=== PATIENT | female | born 1950 | race Caucasian/White ===

== ENCOUNTER 2017-06-07 09:03 | Day surgery (SDC) | payer OTHER ==
[2017-06-07 10:00] LABS: ADD MAN DIFF? NO
[2017-06-07 10:05] LABS: WHITE BLOOD COUNT 8.3 10^3/ul (4.8-10.8)
[2017-06-07 10:05] LABS: BASOPHIL # 0.1 10^3/ul (0.0-0.1); BASOPHILS % 0.7 % (0.0-2.0); EOSINOPHILS # 0.1 10^3/ul (0.0-0.5); EOSINOPHILS % 1.1 % (0.0-7.0); HEMATOCRIT 41.6 % (37.0-47.0); HEMOGLOBIN 13.8 g/dl (12.0-16.0); LYMPHOCYTES # 2.6 10^3/ul (0.8-2.9); LYMPHOCYTES % 31.2 % (15.0-51.0); MEAN CORPUSCULAR HEMOGLOBIN 29.6 pg (29.0-33.0); MEAN CORPUSCULAR HGB CONC 33.2 g/dl (32.0-37.0); MEAN CORPUSCULAR VOLUME 89.3 fl (82.0-101.0); MEAN PLATELET VOLUME 10.8 fl (7.4-10.4); MONOCYTE # 0.7 10^3/ul (0.3-0.9); MONOCYTES % 8.2 % (0.0-11.0); NEUTROPHIL # 4.9 10^3/ul (1.6-7.5); NEUTROPHILS % 58.6 % (39.0-77.0); PLATELET COUNT 301 10^3/UL (140-415); RED BLOOD COUNT 4.66 10^6/ul (4.20-5.40); RED CELL DISTRIBUTION WIDTH 13.5 % (11.5-14.5)
[2017-06-07 10:21] LABS: ANION GAP 16 (8-16); CARBON DIOXIDE 29 mmol/L (21-31); CHLORIDE 104 mmol/L (97-110); GLUCOSE 154 mg/dl (70-220)
[2017-06-07 10:24] LABS: INR 0.91; PROTIME 12.3 Sec (11.9-14.9)
[2017-06-07 10:25] LABS: PARTIAL THROMBOPLASTIN TIME 28.1 Sec (25.0-35.0)
[2017-06-07 10:28] LABS: SODIUM 144 mmol/L (135-144)
[2017-06-07 10:29] LABS: BLOOD UREA NITROGEN 11 mg/dl (7-20); CALCIUM 9.7 mg/dl (8.4-10.2); CREATININE 0.48 mg/dl (0.44-1.00); POTASSIUM 4.5 mmol/L (3.5-5.1)
[2017-06-07] MEDS ORDERED: LIDOCAINE 1% (MDV) 20 ML INJ (14:47)
[2017-06-07] MEDS ORDERED: IODIXANOL LOCM 100 ML BTL (14:47)
[2017-06-07] MEDS ORDERED: NITROGLYCERIN (IC) 100 MCG/ML INJ (14:47)
[2017-06-07] MEDS ORDERED: VERAPAMIL 5 MG INJ (14:47)
[2017-06-07] MEDS ORDERED: HEPARIN 1000 UNITS/ML 10 ML INJ (14:47)
[2017-06-07] MEDS ORDERED: FENTAnyl 50 MCG/ML VIAL (14:49)
[2017-06-07] MEDS ORDERED: MIDAZOLAM 1 MG/ML 2 ML INJ (14:49)
[2017-06-07] MEDS ORDERED: AL HYDROX/MG HYDROX/SIMETH 30 ML CUP PO (16:00)
[2017-06-07] MEDS ORDERED: ACETAMINOPHEN 325 MG TAB PO (16:00)
[2017-06-07] MEDS ORDERED: ONDANSETRON 4 MG INJ IV (16:00)
[2017-06-07] MEDS: SOD CHLORIDE 0.9% 1,000 ML IV (16:19)
== END 2017-06-07 19:00 | disposition home or self-care (01) ==
LOC: SDS 09:03
DX: R07.2 Precordial pain (principal); E78.2 Mixed hyperlipidemia; I10 Essential (primary) hypertension; E11.9 Type 2 diabetes mellitus without complications
CPT/HCPCS: 80048; 82962; 85025; 85610; 85730; 93005; 93458